=== PATIENT | male | born 1985 | race Asian ===

== ENCOUNTER 2019-01-20 03:25 | Emergency (ER) | payer BC ==
[~2019-01-20] VITALS: Ht 172.7 cm; Wt 59.0 kg
[2019-01-20 04:06] VITALS: BP 125/66
[2019-01-20] MEDS ORDERED: LIDOCAINE HCL 2%/EPINEPHRINE/PF 10 ML VIAL INFIL ONE (04:45)
== END 2019-01-20 05:32 | disposition home or self-care (01) ==
LOC: ER 03:35
DX: S01.112A Laceration without foreign body of left eyelid and periocular area, initial encounter (principal); W01.0XXA Fall on same level from slipping, tripping and stumbling without subsequent striking against object, initial encounter; Y93.89 Activity, other specified; Y92.89 Other specified places as the place of occurrence of the external cause; Y99.8 Other external cause status
CPT/HCPCS: 12013; 99283; J3490; Z7610